=== PATIENT | male | born 1960 | race Two or more races ===

== ENCOUNTER 2025-03-09 15:05 | Emergency (ER) | payer BC ==
[~2025-03-09] VITALS: Ht 180.3 cm; Wt 113.4 kg
[2025-03-09] MEDS ORDERED: METHYLPREDNISOLONE SOD SUCC 125 MG VIAL IV STA (17:39)
[2025-03-09] MEDS ORDERED: 0.9 % SODIUM CHLORIDE 1,000 ML IV STA (17:40)
[2025-03-09] MEDS ORDERED: AZITHROMYCIN 500 MG TABLET PO STA (17:41)
[2025-03-09] MEDS ORDERED: LEVALBUTEROL HCL 1.25 MG/3 ML SOLUTION IH SCH (17:45)
[2025-03-09] MEDS ORDERED: BUDESONIDE 0.5 MG/2 ML AMPUL.NEB IH SCH (17:45)
[2025-03-09] MEDS ORDERED: AZITHROMYCIN 500 MG TABLET PO ONE (18:04)
[2025-03-09] MEDS ORDERED: METHYLPREDNISOLONE SOD SUCC 125 MG VIAL ONE (18:05)
[2025-03-09 18:07] LABS: BASO % 0.9 % (0.1-1.2); HEMATOCRIT 49.7 % (40.1-51.0); HEMOGLOBIN 16.6 g/dL (13.7-17.5); LYMPH # 2.12 (1.18-3.74); LYMPH % 21.3 % (19.3-53.1); MEAN CORPUSCULAR HEMOGLOBIN 28.2 pg (25.6-32.2); MONO # 0.85 (0.24-0.82); MONO % 8.6 % (4.7-12.5); NEUT # 6.11 (1.56-6.13); NEUT % 61.6 % (34.0-71.1); PLATELET COUNT 274 K/uL (163-369); RED BLOOD COUNT 5.89 M/uL (4.63-6.08); RED CELL DISTRIBUTION WIDTH 12.4 % (11.6-14.4)
[2025-03-09 18:32] LABS: CALCIUM 8.7 mg/dL (8.5-10.1); CREATININE SERUM 0.81 mg/dL (0.70-1.30); GFR 96.24; POTASSIUM 3.97 mEq/L (3.5-5.1)
[2025-03-09] MEDS ORDERED: BUDESONIDE 0.5 MG/2 ML AMPUL.NEB IH ONE (19:38)
[2025-03-09] MEDS ORDERED: LEVALBUTEROL HCL 1.25 MG/3 ML SOLUTION IH ONE (19:38)
== END 2025-03-09 20:57 | disposition home or self-care (01) ==
LOC: ER 15:32
PROVIDERS: General Practice
DX: J45.909 Unspecified asthma, uncomplicated (principal); Z88.0 Allergy status to penicillin